=== PATIENT | male | born 1955 | race Caucasian/White ===

== ENCOUNTER 2018-07-05 09:43 | Emergency (ER) | payer MEDICARE, OTHER, MEDICAID ==
[2018-07-05 10:08] LABS: ADD MAN DIFF? NO
[2018-07-05 10:11] LABS: BASOPHILS % 0.1 % (0.0-2.0); EOSINOPHILS % 0.1 % (0.0-7.0); HEMATOCRIT 33.4 % (42.0-52.0); HEMOGLOBIN 11.3 g/dl (14.0-18.0); IMMATURE GRANS #M 0.06 10^3/ul; IMMATURE GRANS % (M) 0.4 %; LYMPHOCYTES # 1.3 10^3/ul (0.8-2.9); LYMPHOCYTES % 7.9 % (15.0-51.0); MEAN CORPUSCULAR HEMOGLOBIN 30.5 pg (29.0-33.0); MEAN CORPUSCULAR HGB CONC 33.8 g/dl (32.0-37.0); MEAN PLATELET VOLUME 8.9 fl (7.4-10.4); MONOCYTE # 0.6 10^3/ul (0.3-0.9); MONOCYTES % 3.7 % (0.0-11.0); NEUTROPHIL # 14.5 10^3/ul (1.6-7.5); NEUTROPHILS % 87.8 % (39.0-77.0); PLATELET COUNT 411 10^3/UL (140-415); RED BLOOD COUNT 3.71 10^6/ul (4.70-6.10); RED CELL DISTRIBUTION WIDTH 12.2 % (11.5-14.5)
[2018-07-05 10:11] LABS: WHITE BLOOD COUNT 16.5 10^3/ul (4.8-10.8)
[2018-07-05 10:39] LABS: INR 1.09; PROTIME 14.3 Sec (11.9-14.9); PT RATIO 1.1
[2018-07-05 10:40] LABS: PARTIAL THROMBOPLASTIN TIME 27.3 Sec (25.0-35.0)
[2018-07-05 10:42] LABS: ALANINE AMINOTRANSFERASE 23 IU/L (13-69); ALBUMIN 3.7 g/dl (3.3-4.9); ALKALINE PHOSPHATASE 122 IU/L (42-121); AMYLASE 86 U/L (11-123); ANION GAP 16 (8-16); ASPARTATE AMINO TRANSFERASE 18 IU/L (15-46); BILIRUBIN,INDIRECT 0.2 mg/dl (0-1.1); BILIRUBIN,TOTAL 0.2 mg/dl (0.2-1.3); BLOOD UREA NITROGEN 17 mg/dl (7-20); CALCIUM 9.1 mg/dl (8.4-10.2); CARBON DIOXIDE 30 mmol/L (21-31); CHLORIDE 103 mmol/L (97-110); CREATININE 1.06 mg/dl (0.61-1.24); GLUCOSE 158 mg/dl (70-220); LIPASE 154 U/L (23-300); POTASSIUM 4.2 mmol/L (3.5-5.1); SODIUM 145 mmol/L (135-144); TOTAL PROTEIN 7.8 g/dl (6.1-8.1)
[2018-07-05] MEDS: MAGNESIUM HYDROXIDE 30ML CUP PO (10:49)
[2018-07-05] MEDS: SOD CHLORIDE 0.9% 1,000 ML IV (10:50)
[2018-07-05 10:53] LABS: TROPONIN-I < 0.010 ng/ml (0.000-0.120)
[2018-07-05] MEDS: KETOROLAC 30 MG INJ IV (11:51)
[2018-07-05] MEDS ORDERED: ONDANSETRON 4 MG INJ IV (13:30)
[2018-07-05] MEDS ORDERED: ACETAMINOPHEN 325 MG TAB PO ×2 (13:30→16:00)
[2018-07-05] MEDS: NA PHOSPHATE/BIPHOS 133 ML ENEMA PR (13:55)
[2018-07-05] MEDS ORDERED: GLUCOSE GEL 15 GRAM TUBE BUCCAL (16:00)
[2018-07-05] MEDS ORDERED: GLUCOSE GEL 15 GRAM TUBE PO ×2 (16:00)
[2018-07-05] MEDS ORDERED: BISACODYL 10 MG SUPP PR (16:00)
[2018-07-05] MEDS ORDERED: GLUCAGON 1 MG INJ IM (16:00)
[2018-07-05] MEDS ORDERED: NITROGLYCERIN (SL) 0.4 MG TAB SL (16:00)
[2018-07-05] MEDS ORDERED: DEXTROSE 50% 50 ML SYRINGE IV ×2 (16:00)
[2018-07-05] MEDS ORDERED: [UNRECOGNIZED DRUG - REMARK] XX (16:30)
[2018-07-05] MEDS ORDERED: [UNRECOGNIZED DRUG - REMARK] XX (16:30)
[2018-07-05] MEDS ORDERED: INSULIN ASPART [NOVOLOG] 3 ML PEN SC (18:00)
[2018-07-05] MEDS ORDERED: LACTULOSE 30ML CUP PO (18:00)
[2018-07-05] MEDS ORDERED: INSULIN GLARGINE [LANTus] (100 UNITS/ML) SYG SC (20:00)
[2018-07-05] MEDS ORDERED: MICONAZOLE 2% 30 GM CR TOP (21:00)
[2018-07-05] MEDS ORDERED: FAMOTIDINE 20 MG TAB PO (21:00)
[2018-07-05] MEDS ORDERED: METOPROLOL 50 MG TAB PO (21:00)
[2018-07-05] MEDS ORDERED: ATORVASTATIN 40 MG TAB PO (21:00)
[2018-07-05] MEDS ORDERED: LISINOPRIL 20 MG TAB PO (21:00)
[2018-07-05] MEDS ORDERED: AMLODIPINE 5 MG TAB PO (21:00)
[2018-07-05] MEDS ORDERED: MAGNESIUM OXIDE 400 MG TAB PO (21:00)
[2018-07-05] MEDS ORDERED: POLYETHYLENE GLYCOL 17 GM PACKET PO (21:00)
[2018-07-06] MEDS ORDERED: ACCU-CHEK XX (02:00)
[2018-07-06] MEDS ORDERED: FOLIC ACID 1 MG TAB PO (09:00)
[2018-07-06] MEDS ORDERED: CLOPIDOGREL 75 MG TAB PO (09:00)
[2018-07-06] MEDS ORDERED: ASCORBIC ACID 500 MG TAB PO (09:00)
[2018-07-06] MEDS ORDERED: MULTIVITAMINS THERAPEUTIC TAB PO (09:00)
== END 2018-07-05 18:13 | disposition left against medical advice (07) ==
LOC: E/R 09:43
DX: K59.00 Constipation, unspecified (principal); R40.2142 Coma scale, eyes open, spontaneous, at arrival to emergency department; R40.2362 Coma scale, best motor response, obeys commands, at arrival to emergency department; R40.2252 Coma scale, best verbal response, oriented, at arrival to emergency department
CPT/HCPCS: 74018; 80053; 82150; 83690; 84484; 85025; 85610; 85730; 87040; 93005; 99285-25